=== PATIENT | female | born 1960 | race Caucasian/White ===

== ENCOUNTER → 2022-03-08 | Outpatient (CLI) | payer OTHER ==
--- NOTE | 2022-03-08 16:44 | XR ---
EXAMINATION TYPE: XR cervical spine comp DATE OF EXAM: 03/08/2022 4:40 PM INDICATION: Patient age:Female; 61 years old; Reason for study: S16.1XXA STRAIN OF MUSCLE, FASCIA AND TENDON AT NE; COMPARISON: None TECHNIQUE: The cervical spine was imaged in 4 projections. Frontal, lateral, odontoid and bilateral o blique. FINDINGS: The osseous structures show normal alignment without evidence of an acute fracture. There are osteoph ytes noted throughout the cervical spine on the anterior and lateral aspects of the vertebral bodies. The intervertebral disk spaces are preserved. Pedicles are intact. Soft tissues are within normal limits. The odontoid appears intact. No neural foramen appear patent. IMPRESSION: 1. No fracture or dislocation. 2. Mild degenerative disc disease changes of the cervical spine.
== END | disposition home or self-care (01) ==
LOC: RADXRMAIN 16:25
PROVIDERS: ATTEND Emergency Medicine
DX: S16.1XXA Strain of muscle, fascia and tendon at neck level, initial encounter (principal); M50.30 Other cervical disc degeneration, unspecified cervical region
CPT/HCPCS: 72050